=== PATIENT | male | born 1965 | race Caucasian/White ===

== ENCOUNTER 2020-03-05 08:16 | Outpatient (CLI) | payer OTHER, SELFPAY ==
--- NOTE | ~2020-03-05 | US_ITS ---
EXAMINATION: US right upper quadrant DATE: 03/05/2020 08:56 INDICATION: Unspecified abdominal pain. TECHNIQUE: Multiple grayscale and Doppler ultrasound images of the abdomen were obtained. COMPARISON: Ultrasound 06/06/2015 FINDINGS: The visualized portions of the head, body, and tail of the pancreas are normal. There is di ffuse hepatic steatosis. No liver surface nodularity. There is normal flow in main portal vein. The g allbladder is normal in size. No gallstones or gallbladder wall thickening. There was no sonographic Kohler sign. The common duct is normal and measures 4 mm. IMPRESSION: 1. Diffuse hepatic steatosis. Reviewed, dictated and finalized at location A.
== END 2020-03-05 08:17 | disposition home or self-care (01) ==
PROVIDERS: PCP Family Medicine; Visit Provider Family Medicine
DX: K76.0 Fatty (change of) liver, not elsewhere classified (principal)
CPT/HCPCS: 76705

== ENCOUNTER 2020-05-01 11:28 | Outpatient (CLI) | payer OTHER, SELFPAY ==
[2020-05-01 13:28] LABS: Iron 119 ug/dL (49-181)
[2020-05-01 13:44] LABS: Percent Iron Saturation 33 % (20-50)
[2020-05-01 13:54] LABS: HAV RESULT Negative (Negative); Hepatitis B Core IgM Result Negative (Negative)
[2020-05-01 14:05] LABS: Hepatitis C Virus Antibody Negative (Negative)
[2020-05-02 12:34] LABS: Hepatitis B Surface Antigen Negative (Negative)
[2020-05-03 12:06] LABS: Mitochondrial (M2) Ab (IgG) <=20.0 U (<=20.0)
== END 2020-05-01 11:29 | disposition home or self-care (01) ==
LOC: ANHLAB 11:30
PROVIDERS: PCP Family Medicine; Visit Provider Internal Medicine Gastroenterology
DX: R74.8 Abnormal levels of other serum enzymes (principal); K76.0 Fatty (change of) liver, not elsewhere classified
CPT/HCPCS: 36415; 80074; 82103; 82728; 83520; 83540; 83550; 86038

== ENCOUNTER 2020-06-11 01:23 | Outpatient (CLI) | payer OTHER, SELFPAY ==
[2020-06-11 19:01] LABS: SARS-CoV-2 RNA PCR Negative
== END 2020-06-11 01:24 | disposition home or self-care (01) ==
LOC: ANHCOVIDDT 01:23
PROVIDERS: PCP Family Medicine; Visit Provider Internal Medicine Gastroenterology
DX: Z01.818 Encounter for other preprocedural examination (principal); Z11.59 Encounter for screening for other viral diseases
CPT/HCPCS: 87635; C9803; U0003

== ENCOUNTER 2020-06-13 02:51 | Day surgery (SDC) | payer OTHER, SELFPAY ==
[2020-06-05 14:15] VITALS: BMI 32.3
[2020-06-13 06:49] VITALS: BMI 30.6
[2020-06-13] MEDS: LACTATED RINGERS 1,000 ML 150 ML IV CONT (07:00)
--- NOTE | 2020-06-13 07:09 | WPDANESEPPF ---
Anes - Initial Pre Proc Eval Procedure: Operation Date: 06/13/20 08:00 Proposed Procedures p Esophagogastroduodenoscopy&Screen Colon - Gavino Ang MD Date/Time: 06/13/20 07:09 Surgeon: Gavino Ang MD Pre Op Diagnosis: Epigastric Pain, Neoplasm Screening Patient Data Age: 54 Gender: M Height: 5 ft 10 in Weight: 96.7 kg Allergies Allergy/AdvReac Type Severity Reaction Status Date / Time No Known Allergies Allergy Verified 06/13/20 06:43 Home Medications Medication Instructions Recorded Confirmed Type amlodipine 10 mg tablet 10 mg PO DAILY #30 tablet 04/16/20 06/05/20 Rx lisinopril 10 mg tablet 10 mg PO DAILY #30 tablet 04/16/20 06/05/20 Rx peg 3350-electrolytes 236 240 ml PO Q10M #4000 ml 06/11/20 Rx gram-22.74 gram-6.74 gram-5.86 gram solution Patient hx anesthesia problems: none Family hx anesthesia problems: none [facility] Past Medical History Medical History Colon cancer screening Elevated liver enzymes Epigastric pain Social History Social History Smoking status: Former smoker Smokeless tobacco user: chewing tobacco Alcohol intake: never Substance use: never Substance use type: does not use Gender identity (if verbalized by the patient): Male Anes - Eval Final PreProcedure Day of Procedure 06/13/20 07:09 Patient weight: obese Heart: regular rate and rhythm Lungs: clear to auscultation Airway: Mallampati scale class II Neurological: alert and oriented Last oral intake: >/= 8 hours ASA classification: II Emergent: no Anesthetic plan: proceed Anesthesia type and monitoring: general GIVS and standard monitoring Informed Consent: The patient's anesthetic plan and its attendant risks and benefits were discussed with the patient/family/POA. Questions were solicited and answers provided to the satisfaction of the patient/family/POA.
--- NOTE | 2020-06-13 07:52 | SUR.PREOP ---
pt notified of approximate delay of 20 min for procedure start time.
--- NOTE | 2020-06-13 08:15 | PM.HPGS ---
History of Present Illness History of Present Illness Consent: Risks, benefits, and alternatives have been discussed and questions answered. Patient agrees to proceed with procedure. Chief complaint: Epigastric Pain, Neoplasm Screening Narrative: Mustapha Gallego is a 54 year old male here with epigastric pain and screening colonoscopy Review of Systems Constitutional: Constitutional: Denies headache(s) and Denies weakness Eyes: Eyes: Denies blurry vision ENT: Reports Normal hearing present, Denies headache(s) and Denies neck pain Cardiovascular: Cardiovascular: Denies chest pain and Denies dyspnea Respiratory: Respiratory: Denies dyspnea Gastrointestinal: Gastrointestinal: Reports no additional gastrointestinal complaints Genitourinary: Genitourinary: Denies dysuria Musculoskeletal: Musculoskeletal: Denies neck pain Integumentary/Breasts: Skin/Breast: Denies dry skin Neurologic: Reports Normal hearing present, Denies headache(s) and Denies weakness Psychiatric: Psychiatric: Denies anxiety Endocrine: Endocrine: Denies change in body appearance Hematologic/Lymphatic: Hematologic/Lymphatic: Denies easy bleeding Allergic/Immunologic: Allergic/Immunologic: Denies urticaria PMFSH Past Medical History Medical History Colon cancer screening Elevated liver enzymes Epigastric pain Social History Social History Smoking status: Former smoker Smokeless tobacco user: chewing tobacco Alcohol intake: never Substance use: never Substance use type: does not use Gender identity (if verbalized by the patient): Male Meds Home Medications and Allergies Home Medications Medication Instructions Recorded Confirmed Type amlodipine 10 mg tablet 10 mg PO DAILY #30 tablet 04/16/20 06/05/20 Rx lisinopril 10 mg tablet 10 mg PO DAILY #30 tablet 04/16/20 06/05/20 Rx peg 3350-electrolytes 236 240 ml PO Q10M #4000 ml 06/11/20 Rx gram-22.74 gram-6.74 gram-5.86 gram solution Allergies Allergy/AdvReac Type Severity Reaction Status Date / Time No Known Allergies Allergy Verified 06/13/20 06:43 Exam Const: General: comfortable and no acute distress HENMT: General nose exam: Normal nares present Eyes: General: appearance normal, both eyes and all related structures Neck: Neck: no JVD Resp: Auscultation: clear to auscultation bilaterally Cardio: Rate: regular rate Rhythm: regular rhythm GI: Inspection: non-distended GI Palp: Yes Soft to palpation Skin: General skin exam: normal color Neuro: General: gait normal Speech: normal speech Extrem: General: normal to inspection Psych: Mental Status: mental status grossly normal Assessment and Plan Assessment and plan (1) Epigastric pain: Code(s): R10.13 - Epigastric pain Status: Acute Assessment and Plan: will do egd and consider bx, still with intermittent pain (2) NAFL (nonalcoholic fatty liver): Code(s): K76.0 - Fatty (change of) liver, not elsewhere classified Status: Acute (3) Colon cancer screening: Code(s): Z12.11 - Encounter for screening for malignant neoplasm of colon Status: Acute Assessment and Plan: proceed with colonoscopy (4) Elevated liver enzymes: Code(s): R74.8 - Abnormal levels of other serum enzymes Status: Acute Assessment and Plan: w/u negative, probably fatty liver
[2020-06-13 08:50] VITALS: BP 116/65; PULSE 68; O2SAT 98
[2020-06-13 09:00] VITALS: BP 114/65; PULSE 67; O2SAT 98
[2020-06-13 09:10] VITALS: BP 119/85; PULSE 67; O2SAT 100
== END 2020-06-13 09:33 | disposition home or self-care (01) ==
PROVIDERS: PCP Family Medicine; Visit Provider Internal Medicine Gastroenterology
PROC: 0DJ08ZZ Inspection of Upper Intestinal Tract, Via Natural or Artificial Opening Endoscopic (ICD-10-PCS; CPT 43235; principal; 2020-06-13 08:00)
DX: Z12.11 Encounter for screening for malignant neoplasm of colon (principal); D12.3 Benign neoplasm of transverse colon; K57.30 Diverticulosis of large intestine without perforation or abscess without bleeding; K64.8 Other hemorrhoids; K29.50 Unspecified chronic gastritis without bleeding; E66.9 Obesity, unspecified; Z68.30 Body mass index [BMI] 30.0-30.9, adult; Z87.891 Personal history of nicotine dependence; Z79.899 Other long term (current) drug therapy
CPT/HCPCS: 43239; 45380; 88305; J2704; J7120

== ENCOUNTER 2025-02-17 08:17 | Emergency (ER) | payer OTHER, SELFPAY ==
--- NOTE | 2025-02-17 08:18 | ED_ITS ---
HPI - URI/Sore Throat General Chief Complaint: Upper Respiratory Infection Stated Complaint: Sinus Time Seen by Provider: 02/17/25 08:17 Source: patient Mode of arrival: ambulatory Limitations: no limitations History of Present Illness HPI Narrative: Patient is a 59-year-old male that presents with sinus congestion, chest congestion and cough for 10 days. Patient denies any fever, chills, nausea, vomiting, diarrhea. Patient has taken Mucinex. Related Data Allergies Allergy/AdvReac Type Severity Reaction Status Date / Time No Known Allergies Allergy Verified 11/02/24 07:44 Review of Systems Review of Systems: All systems reviewed & are unremarkable except as noted in HPI and below Constitutional: Constitutional: Denies chills, Denies fatigue, Denies fever(s), Denies headache(s), Denies malaise and Denies weakness Eyes: Eyes: Denies blurry vision, Denies itchy eyes and Denies loss of vision ENT: Denies otalgia, Denies headache(s), Reports nasal congestion, Denies sinus pain and Denies sore throat Cardiovascular: Cardiovascular: Denies chest pain, Denies irregular heart rhythm and Denies dyspnea Respiratory: Respiratory: Reports chest congestion, Reports cough and Denies dyspnea Gastrointestinal: Gastrointestinal: Denies abdominal pain, Denies diarrhea, Denies nausea and Denies vomiting Musculoskeletal: Musculoskeletal: Denies back pain, Denies myalgias and Denies arthralgias Integumentary/Breasts: Skin/Breast: Denies pruritus and Denies rash Neurologic: Denies headache(s), Denies loss of vision and Denies weakness Psychiatric: Psychiatric: Reports no additional psychiatric complaints Endocrine: Endocrine: Denies fatigue Allergic/Immunologic: Allergic/Immunologic: Denies itchy eyes PMFSH Past Medical History Medical History Gastritis Internal hemorrhoids Diverticulosis Colon polyps Colon cancer screening Elevated liver enzymes Epigastric pain Social History Social History Smoking status: Never smoker Smokeless tobacco user: chewing tobacco and snuff Alcohol intake: never Substance use: never Substance use type: does not use Living arrangements: with family Occupation/Education: occupation Gender identity (if verbalized by the patient): Male Sexual Orientation (if Verbalized by the Patient): Straight or Heterosexual Comments At time of signature, agree with nursing past medical, surgical, social and family history. There is no relevant family history pertinent to the presenting complaint. Exam Const: General: cooperative, healthy appearing, comfortable, no acute distress and well nourished Nutritional Appearance: well nourished Orientation/consciousness: patient oriented x3 Limitations: no limitations HENMT: Head: normal to inspection, normocephalic and atraumatic Ears: hearing grossly normal bilaterally, external ears normal, TM's normal bilaterally, EAC's normal and no periauricular adenopathy Face/Nose/Sinus: Normal external nose present, Abnormal mucous membranes and turbinates present erythematous bilateral and diffuse, normal facial exam, sinuses nontender and face symmetric Face and sinus: normal facial exam, sinuses nontender and face symmetric Mouth: Yes Normal oral and palatal mucosa present, Yes lip normal, Yes tongue normal, Yes Normal salivary glands and ducts present, Yes oropharynx normal and Yes moist mucous membranes Teeth and gingiva: dentition normal Throat: posterior oropharynx normal, tonsils normal and uvula midline Eyes: General: appearance normal, both eyes and all related structures Alignment and Position: alignment normal and position normal Periorbital: periorbital findings normal Eyelids: eyelids normal Pupils: Equal, round and reactive pupils present Neck: Neck: normal visual inspection, full ROM, no lymphadenopathy and supple Chest: Chest palpation & inspection: normal inspection of the chest and normal palpation of entire chest wall Resp: Effort & Inspection: normal respiratory effort, able to speak in complete sentences and Actively coughing productive (active coughing fits) Auscultation: clear to auscultation bilaterally, no crackles, no rales, no rhonchi and no wheezes Cardio: Rate: regular rate Rhythm: regular rhythm Heart sounds: S1 normal heart sound present and S2 normal heart sound present GI: Inspection: normal to inspection Skin: General skin exam: normal color and no rashes or lesions noted Neuro: General: patient oriented x3 and moves all extremities Cranial nerves: Yes Equal, round and reactive pupils present Speech: normal speech Gait exam (Neuro): Normal gait present Extrem: General: normal to inspection, full ROM and no edema Psych: Appearance: grossly normal and well kempt Mental Status: mental status grossly normal Speech and movement: Normal speech and movement present Affect: normal affect Attitude: cooperative Thought process: Normal thought process present Course Course Emergency Course: Discharge instructions reviewed with patient, as well as provided in writing per nursing staff. The instructions also include specific and strict return/GO TO THE ER as well as f/u information. All questions have been answered, and the patient deny any further questions with discharge and discharge plan. Portions of this record may have been created with voice recognition software Level of Care: Express Care Visit Vital Signs Vital signs: Reviewed MDM - URI/Sore Throat MDM Narrative Medical decision making narrative: Pt well hydrated appearing, in no respiratory distress, hemodynamically stable. Recommend supportive care. The patient is stable at time of discharge the clinical impression was discussed and the patient was given the opportunity to ask questions, which were addressed as completely as possible given the information available at present. Anticipatory guidance and return to care precautions were discussed and the importance of primary care follow-up was stressed and encouraged. The patient voiced understanding of the plan, indications to return, and the need for follow-up. Differential diagnosis considered: Bronchitis, Hutchinson virus, strep pharyngitis, allergic rhinitis, upper respiratory tract infection, sinusitis, rhinosinusitis, nasopharyngitis. viral pharyngitis, otitis media, otitis externa, otitis ef fusion, foreign body, cerumen impaction, viral syndrome, and influenza.? Exam findings show no acute concerns or changes; patient is non-toxic appearing and is in no distress.? Patient is appropriate for outpatient treatment and follow- up.? Medical Records Attestation: I reviewed the patient's medical records. Discharge Plan Discharge Clinical Impression: Upper respiratory infection with cough and congestion Patient Disposition: Home, Self-Care Condition: Stable Instructions: Upper Respiratory Infection (ED) Additional Instructions: Take antibiotic as prescribed. Take steroids in the morning with food. Use Tessalon Perles as needed for cough. Use inhaler with spacer as needed. Other symptomatic treatments include: -Alternate Tylenol and Motrin per package directions for fever or pain: Tylenol 650-1000mg by mouth every 4-6 hours. Do not exceed 4000mg in 24 hours. Advil (Ibuprofen) 600 mg by mouth every 6 hours. Do not exceed 2400mg in 24 hours. 8 AM: Tylenol 11 AM: Ibuprofen 2 PM: Tylenol 5 PM: Ibuprofen 8 PM: Tylenol 11 PM: Ibuprofen 2 AM: Tylenol 5 AM: Ibuprofen -Antihistamine medication such as Benadryl at night and Zyrtec/Claritin/Delmy during the day can help improve symptoms. -Use Flonase twice a day for 5 days then daily to help reduce the inflammation and dry up your sinuses. -You can also use Sudafed or Mucinex. Be sure to drink plenty of water with these medications at least 8 ounces with every dose and it is important to drink 8 to 10 glasses of water per day. Water is a natural decongestant -Eat and drink things that are easy to swallow, like tea or soup, or popsicles. -Oral rinses such as: Salt water gargles and/or may use topical anesthetic (eg. Chloraseptic spray) or lozenges to relieve dryness or throat pain). -Frequent hand washing or hand diabetes solutions specialist is one of the best ways to prevent spread of infection. -Using a vaporizer or humidifier at night will also help thin secretions and help with coughing up phlegm. Call your Primary Care Doctor and make a follow-up appointment in 3 days. If your cough worsens, you develop a fever greater than 103, you develop shaking chills, a fast heartbeat, trouble breathing and/or feel you are are breathing much faster than usual, call your Primary Care Doctor or go to the ER. Patient Language: Luxembourger Prescriptions: New (DME) Aerochamber MV Spacer See Rx Instructions .Route Qty: 1 0RF Rx Instructions: As directed albuterol sulfate 90 mcg/actuation HFA aerosol inhaler 2 puff inhalation QID PRN (Reason: shortness of breath or wheezing) Qty: 6.7 0RF prednisone 20 mg tablet 40 mg PO DAILY 5 Days Qty: 10 0RF doxycycline monohydrate 100 mg tablet 100 mg PO BID 5 Days Qty: 10 0RF benzonatate 100 mg capsule 100 mg PO BID PRN (Reason: cough) Qty: 14 0RF No Action lisinopril 20 mg tablet 20 mg PO DAILY Qty: 90 1RF amlodipine 10 mg tablet 10 mg PO DAILY Qty: 90 1RF Follow-up/Referrals: Duane Ross MD [Primary Care Provider] - 3 Days Time of Disposition: 08:42
[2025-02-17 08:30] VITALS: BP 136/91; PULSE 105; RESP 16; TEMP 36.7; O2SAT 98
== END 2025-02-17 08:45 | disposition home or self-care (01) ==
PROVIDERS: Emergency Provider Nurse Practitioner Family; PCP Family Medicine
DX: J06.9 Acute upper respiratory infection, unspecified (principal); R05.9 Cough, unspecified; F17.220 Nicotine dependence, chewing tobacco, uncomplicated
CPT/HCPCS: 99213; G0463